=== PATIENT | female | born 1940 | race Asian ===

== ENCOUNTER 2020-03-29 10:53 | Emergency (ER) | payer MEDICARE, OTHER ==
[~2020-03-29] VITALS: Ht 152.4 cm; Wt 52.3 kg
[2020-03-29] MEDS: KETOROLAC TROMETHAMINE 30 MG/ML VIAL IVP ONE (12:14)
[2020-03-29] MEDS: ONDANSETRON HCL 4 MG/2 ML VIAL IVP ONE (12:14)
[2020-03-29] MEDS: FentaNYL CITRATE-PF 100 MCG/2 ML VIAL IVP ONE (12:15)
[2020-03-29 14:22] VITALS: BP 146/79
== END 2020-03-29 14:59 | disposition home or self-care (01) ==
LOC: EMS 11:02
DX: S30.0XXA Contusion of lower back and pelvis, initial encounter (principal); W10.9XXA Fall (on) (from) unspecified stairs and steps, initial encounter; Y93.89 Activity, other specified; Y92.89 Other specified places as the place of occurrence of the external cause; Y99.8 Other external cause status
CPT/HCPCS: 72070; 72100; 72170; 96374; 96375; 99284; J1885; J2405; J3010